=== PATIENT | female | born 1975 | race Caucasian/White ===

== ENCOUNTER → 2021-10-01 | Outpatient (CLI) | payer MEDICARE, OTHER ==
[2021-10-01 10:20] LABS: Prothrombin Time 11.3 sec (9.0-12.0)
--- NOTE | 2021-10-01 11:07 | FL ---
EXAMINATION TYPE: FL barium swallow DATE OF EXAM: 10/01/2021 COMPARISON: None HISTORY: Dysphagia history of prior gastric sleeve TECHNIQUE: A single contrast esophagram study is performed. Observation of the gastric sleeve is per formed FINDINGS: Esophagus dilates to normal caliber and has normal contour to the gastroesophageal junction. Gastroes ophageal junction opens to normal caliber. No intraluminal or extradural defects are evident. There i s complete stripping of the esophageal bolus in the horizontal drinking position. No suspicious west es through the gastric sleeve as limitedly visualized during this exam. There is complete stripping e sophageal bolus in the horizontal drinking position. Fluoroscopy time: 24 seconds. Images: 112. IMPRESSIONS: 1. No suspicious acute changes single contrast esophagram.
[2021-10-01 15:00] LABS: HGB 14.2 g/dL (12.0-15.0); MCH 29.7 pg (27.0-32.0); MCHC 32.3 g/dL (32.0-37.0); MCV 92.1 fL (80.0-97.0); Mean Platelet Volume 10.2 fL (9.5-12.2); NRBC Per 100 WBC 0 /100 WBCS (0.0-0.0); Platelet Count 134 X 10*3/uL (140-440); RBC 4.78 X 10*6/uL (4.10-5.20); RDW 12.7 % (11.5-14.5); WBC 4.07 X 10*3/uL (4.50-10.00)
[2021-10-01 16:52] LABS: Chol/HDL Ratio 2.46 Ratio; LDL Cholesterol,Calculated 93.3 mg/dL (0.0-131.0); VLDL Calculation 17.76 mg/dL (5.00-40.00)
[2021-10-01 18:18] LABS: ALT 20 U/L (8-44); AST 24 U/L (13-35); African American GFR (CKD) 77.7 (60.0-200.0); Albumin 4.7 g/dL (3.8-4.9); Albumin/Globulin Ratio 1.62 (1.60-3.17); Alkaline Phosphatase 73 U/L (41-126); Calcium 9.7 mg/dL (8.7-10.3); Carbon Dioxide 18.6 mmol/L (20.0-27.5); Chloride 104 mmol/L (96-109); Globulin 2.9 g/dL (1.6-3.3); Glucose 97 mg/dL (70-110); Iron 73 ug/dL (50-170); Potassium 4.4 mmol/L (3.5-5.5); Sodium 140 mmol/L (135-145); Total Protein 7.6 g/dL (6.2-8.2)
[2021-10-01 18:40] LABS: % Iron Saturation 25.21 (12.00-45.00); Total Iron Binding Capacity 288 ug/dL (228-460)
[2021-10-02 13:27] LABS: Zinc, Serum 86 ug/dL (60-130)
[2021-10-05 08:18] LABS: Vitamin A 48 ug/dL (38-106)
[2021-10-05 10:04] LABS: Vit B1(Thiamine) 84 ug/L (38-122)
[2021-10-06 07:46] LABS: Selenium 156 mcg/L (63-160)
== END | disposition home or self-care (01) ==
LOC: RADUSWWP 09:06
PROVIDERS: ATTEND Surgery Plastic and Reconstructive Surgery
DX: R13.10 Dysphagia, unspecified (principal); D50.8 Other iron deficiency anemias; D50.9 Iron deficiency anemia, unspecified; K91.2 Postsurgical malabsorption, not elsewhere classified; E44.0 Moderate protein-calorie malnutrition; E44.1 Mild protein-calorie malnutrition; E55.9 Vitamin D deficiency, unspecified; K74.1 Hepatic sclerosis; N19 Unspecified kidney failure; K50.90 Crohn's disease, unspecified, without complications; T56.894A Toxic effect of other metals, undetermined, initial encounter
CPT/HCPCS: 74220; 80053; 80061; 82306; 82525; 82607; 82728; 82746; 83036; 83540; 83550; 83735; 83970; 84100; 84255; 84425; 84443; 84590; 84630; 85027; 85610; 85730

== ENCOUNTER → 2022-03-03 | Outpatient (CLI) | payer MEDICARE, OTHER ==
[2022-03-03 15:28] VITALS: BP 131/87; PULSE 84; TEMP 98.3; BMI 32.1
--- NOTE | 2022-03-03 15:48 | P.BASOAP ---
Subjective Progress Note Date: 03/03/22 She is maintaining her weight. She is doing well with labs. Objective - Vital Signs Vital signs: Vital Signs Temp 98.3 F 03/03/22 15:24 Pulse 84 03/03/22 15:24 Resp BP 131/87 03/03/22 15:24 Pulse Ox FiO2 Intake & Output 03/02/22 03/03/22 03/03/22 18:59 06:59 18:59 Weight 80.286 kg Assessment/Plan Plan: Date: 03/03/22 Initial Weight: Initial BMI: Current Weight: 80.286 kg Current BMI: 32.1 Type of Surgery: Total Volume in Band: Previous Volume: Volume Removed: Volume Added: Band Size:
== END ==
LOC: BARWHC3 14:30
PROVIDERS: ATTEND Surgery Plastic and Reconstructive Surgery
DX: E66.01 Morbid (severe) obesity due to excess calories (principal); Z68.32 Body mass index [BMI] 32.0-32.9, adult; Z88.1 Allergy status to other antibiotic agents; Z88.5 Allergy status to narcotic agent; Z88.8 Allergy status to other drugs, medicaments and biological substances
CPT/HCPCS: 99211